=== PATIENT | female | born 1945 | race Caucasian/White ===

== ENCOUNTER 2023-10-23 19:30 | Emergency (ER) | payer MEDICARE, SELFPAY ==
[2023-10-23 19:36] VITALS: BP 173/81; PULSE 95; RESP 18; TEMP 36.6; O2SAT 96
--- NOTE | 2023-10-23 19:58 | CRLHL7_ITS ---
For Patients: As a result of the Century Cures Act, medical imaging exams and procedure reports are released immediately into your electronic medical record. You may view this report before your referring provider. If you have questions, please contact your health care provider. INDICATION: Right chest trauma 5 days ago, injury TECHNIQUE: CT chest without i.v. contrast. Coronal and sagittal reformats were obtained. COMPARISON: None FINDINGS: Cardiovascular: The heart has an unremarkable appearance and size. The pulmonary arteries are unremarkable in appearance. No sign of aneurysm seen in the thoracic aorta. The presence of aortic dissection cannot be evaluated without the use of intravenous contrast. Mild atherosclerotic calcifications are noted in the coronary arteries. Mediastinum: No mass or adenopathy seen. The thyroid lobe is mildly heterogeneous in appearance. Lung: Moderate bibasilar discoid atelectasis is present. No pulmonary contusion, laceration or pneumothorax is seen. Pleura and pericardium: No sign of pleural effusion seen. No significant pericardial effusion is present. Chest wall and axilla: No mass or adenopathy seen. Bone: There is a comminuted, displaced fracture of the medial head of the right clavicle with surrounding soft tissue hematoma. Moderate dextroscoliosis is noted with associated facet arthritis and degenerative disc disease. Upper abdomen: Unremarkable. IMPRESSION: 1. There is a comminuted, displaced fracture of the medial head of the right clavicle with surrounding soft tissue hematoma. Dictated by Roe Galarza MD @ 10/23/2023 9:04:49 PM Please note that all CT scans at this facility use dose modulation, iterative reconstruction, and/or weight-based dosing when appropriate to reduce radiation dose to as low as reasonably achievable. Dictated by: Roe Galarza MD @ 10/23/2023 21:13:02 (Electronically Signed)
--- NOTE | 2023-10-23 20:36 | ED_ITS ---
HPI - General Adult General Date Seen: 10/23/23 Chief complaint: Fall/Minor Trauma Stated complaint: swelling after fall Time Seen by Provider: 10/23/23 19:31 Source: patient Mode of arrival: ambulatory Limitations: no limitations History of Present Illness HPI narrative: Patient is a 78-year-old woman who says she stumbled and fell about 5 days ago, landing on her right chest. Since then she has had pain and swelling in the right anterior upper chest. She does not have pain with breathing, does not feel short of breath. She came in tonight because she feels like the swelling is getting worse rather than better. She has extensive bruising down her chest. She is not anticoagulated, does have a history of atrial fibrillation but is quite certain she is not on any blood thinners. She denies any head or neck injury. No other complaints. Related Data Home Medications ?Medication ?Instructions ?Recorded ?Confirmed metoprolol tartrate 25 mg tablet 6.25 mg PO BID 10/23/23 10/23/23 Allergies Allergy/AdvReac Type Severity Reaction Status Date / Time No Known Drug Allergies Allergy Verified 10/23/23 19:39 Review of Systems Status of ROS: Reports: 6 or more systems reviewed and unremarkable except as noted in History and below [facility] Medical History HTN (hypertension) ?I10 - Essential (primary) hypertension (ICD-10) Recurrent sinusitis ?J32.9 - Chronic sinusitis, unspecified (ICD-10) PAF (paroxysmal atrial fibrillation) ?I48.0 - Paroxysmal atrial fibrillation (ICD-10) Colitis ?K52.9 - Noninfective gastroenteritis and colitis, unspecified (ICD-10) Chronic rhinitis ?J31.0 - Chronic rhinitis (ICD-10) Chronic heartburn ?R12 - Heartburn (ICD-10) Acute duodenal ulcer ?K26.3 - Acute duodenal ulcer without hemorrhage or perforation (ICD-10) Surgical History [place] teeth extracted ?K08.409 - Partial loss of teeth, unspecified cause, unspecified class (ICD- 10) History of esophagogastroduodenoscopy (EGD) ?Z98.890 - Other specified postprocedural states (ICD-10) History of colonoscopy ?Z98.890 - Other specified postprocedural states (ICD-10) Social History Smoking Status: Never smoker Do you use any of these nicotine containing products: None How often do you have a drink containing alcohol: never AUDIT-C Alcohol total score: 0 Non-prescribed substance use: denies use Exam Narrative: Exam Narrative: Vital signs reviewed In general, alert, well-appearing woman. Chest: Examination of the anterior chest shows swelling over the sternoclavicular joint, tenderness, no significant fluctuance however. She does not otherwise have tenderness over the clavicle. She has extensive bruising all across her chest. No crepitus or subcu air. Lungs: Breath sounds are equal, unlabored. Const: Vital Signs, click to edit/add: Vital Signs - 24 hr 10/23/23 19:36 Temperature 97.8 F Pulse Rate [Pulse Oximeter] 95 Respiratory Rate 18 Blood Pressure [Le ft Upper Arm] 173/81 H Pulse Oximetry 96 Oxygen Delivery Me thod Room Air Documenting provider has reviewed patient's vital signs: yes Course Course ED Course: I elected to do a CT scan to evaluate the clavicle and sternum as well as soft tissue swelling. This is read as follows by Radiology:FINDINGS: Cardiovascular: The heart has an unremarkable appearance and size. The pulmonary arteries are unremarkable in appearance. No sign of aneurysm seen in the thoracic aorta. The presence of aortic dissection cannot be evaluated without the use of intravenous contrast. Mild atherosclerotic calcifications are noted in the coronary arteries. Mediastinum: No mass or adenopathy seen. The thyroid lobe is mildly heterogeneous in appearance. Lung: Moderate bibasilar discoid atelectasis is present. No pulmonary contusion, laceration or pneumothorax is seen. Pleura and pericardium: No sign of pleural effusion seen. No significant pericardial effusion is present. Chest wall and axilla: No mass or adenopathy seen. Bone: There is a comminuted, displaced fracture of the medial head of the right clavicle with surrounding soft tissue hematoma. Moderate dextroscoliosis is noted with associated facet arthritis and degenerative disc disease. Upper abdomen: Unremarkable. IMPRESSION: 1. There is a comminuted, displaced fracture of the medial head of the right clavicle with surrounding soft tissue hematoma. Will give her a sling, ice and Tylenol. Would recommend orthopedic follow-up to ensure that this is healing properly. Return any time for acute worsening, severe pain, fevers, or other changes. Vital Signs Vital signs: Initial Vital Signs Temperature 97.8 F 10/23/23 19:36 Temperature Source Temporal Artery Scan 10/23/23 19:36 Pulse Rate 95 10/23/23 19:36 Respiratory Rate 18 10/23/23 19:36 Blood Pressure 173/81 H 10/23/23 19:36 Blood Pressure Mean 111 H 10/23/23 19:36 Blood Pressure Position Sitting 10/23/23 19:36 Pulse Oximetry 96 10/23/23 19:36 Oxygen Delivery Method Room Air 10/23/23 19:36 Vital Signs Temperature 97.8 F 10/23/23 19:36 Pulse Rate 95 10/23/23 19:36 Respiratory Rate 18 10/23/23 19:36 Blood Pressure 173/81 H 10/23/23 19:36 Pulse Oximetry 96 10/23/23 19:36 Oxygen Delivery Method Room Air 10/23/23 19:36 Temperature 97.8 F 10/23/23 21:22 Pulse Rate 85 10/23/23 21:22 Respiratory Rate 18 10/23/23 21:22 Blood Pressure 155/74 H 10/23/23 21:22 Pulse Oximetry 96 10/23/23 21:19 Oxygen Delivery Method Room Air 10/23/23 21:19 Discharge Plan Discharge Clinical Impression: Right clavicle fracture Patient Disposition: Home, Self-Care Condition: Stable Instructions: Clavicle Fracture (DC) Additional Instructions: Sling for comfort. Tylenol and, 1000 mg 3 times daily as needed. Ice. Recommend orthopedic follow-up next week, to schedule an appointment. For severe uncontrolled pain, new symptoms such as shortness of breath, fever, or other worsening symptoms return at any time to the emergency department. Prescriptions: No Action metoprolol tartrate 25 mg tablet 6.25 mg PO BID Follow Up/Referrals: Kailyn Joseph MD [Primary Care Provider] - Stand Alone Forms: [employer] Info Instructions
[2023-10-23 21:19] VITALS: BP 155/74; PULSE 85; RESP 18; TEMP 36.6; O2SAT 96
[2023-10-23 21:22] VITALS: BP 155/74; PULSE 85; RESP 18; TEMP 36.6
== END 2023-10-23 21:30 | disposition home or self-care (01) ==
PROVIDERS: Emergency Provider Emergency Medicine; PCP Family Medicine
DX: S42.021A Displaced fracture of shaft of right clavicle, initial encounter for closed fracture (principal); W01.0XXA Fall on same level from slipping, tripping and stumbling without subsequent striking against object, initial encounter
CPT/HCPCS: 71250; 99283; 99284